=== PATIENT | male | born 1990 | race Caucasian/White ===

== ENCOUNTER 2024-07-18 18:37 | Emergency (ER) | payer SELFPAY ==
[~2024-07-18] VITALS: Ht 167.6 cm; Wt 64.0 kg
[2024-07-18 18:44] VITALS: TEMP 36.4; O2SAT 100
[2024-07-18 21:00] VITALS: BP 143/87; PULSE 63; RESP 18; O2SAT 100
== END 2024-07-18 21:27 | disposition home or self-care (01) ==
LOC: ER 18:37
DX: Z00.00 Encounter for general adult medical examination without abnormal findings (principal); Z98.890 Other specified postprocedural states
CPT/HCPCS: 99281